=== PATIENT | male | born 1980 | race Caucasian/White ===

== ENCOUNTER 2018-09-10 01:10 | Observation (INO) ==
[2018-09-10] MEDS ORDERED: MORPHINE SULFATE 4 MG/1 ML IVP ONE ×2 (01:18→02:43)
[2018-09-10] MEDS ORDERED: Sodium Chloride 0.9% 1,000 ML PRIMARY IV ONE (01:18)
[2018-09-10] MEDS ORDERED: ONDANSETRON 4 MG/2 ML VIAL IVP ONE (01:18)
--- NOTE | 2018-09-10 01:22 | PDOC ---
Abdomen/Flank HPI - General Chief Complaint: Abdomen Pain Stated Complaint: Stomach Pain Date Seen by Provider: 09/10/18 Time Seen by Provider: 01:17 Source: POSITIVE: Patient Exam Limitations: POSITIVE: No limitations Nurse's Notes Reviewed & Considered: Yes - History of Present Illness Initial Comments: This is a well-developed, well-nourished, 38-year-old male, complaining of abdominal pain. She was in his normal state of health tonight just prior to eating supper at approximately 2100 hrs. Subsequent to his meal he developed epigastric abdominal pain and vomiting. His abdominal pain is diffuse but with significant tenderness in the right lower quadrant with rebound present. He denies any headache, no sore throat, no chest pain or shortness of breath, he does have nausea and vomiting but no diarrhea, no hematuria or dysuria, no rashes, no myalgias or arthralgias. Body Location Affected: REPORTS: Abdomen Timing: REPORTS: Abrupt Duration: 4-6 hours Severity: Severe Quality: REPORTS: Cramping, "Pain", Sharpness, Throbbing Abdominal Pain Onset Location: REPORTS: Epigastric Abdominal Pain Radiation: REPORTS: RLQ, Epigastric, Periumbilical Context: REPORTS: Bad Food (Patient ate a bratwurst for supper and then had abdominal pain with nausea and vomiting.) Modifying Factors: improves with: Nothing Associated Symptoms: REPORTS: Nausea, Vomiting Similar Symptoms Previously: No Recent Care Received: REPORTS: Denies Any Prior Injuries Related to Current Complaint?: No - Patient Home Medications Home Medications: Home Medications amitriptyline 25 mg tablet 25 mg PO QHS #30 tab 05/20/17 bupropion HCl XL 150 mg 24 hr tablet, extended release 150 mg PO QAM #30 tab 05/20/17 fenofibrate 54 mg tablet 50 mg PO ONCE #30 tab 05/20/17 - Patient Allergies Allergies/Adverse Reactions: Allergies Allergy/AdvReac Type Severity Reaction Status Date / Time No Known Drug Allergies Allergy NOT Verified 08/21/18 08:51 APPLICABLE Past Medical History - heen HEENT History: Recurrent Ear Infections, Other (please comment) Additional HEENT History: CHRONIC RIGHT EAR INFECTION Cardiovascular History: Hyperlipidemia Respiratory History: Asthma Additional Respiratory History: childhood asthma Gastrointestinal History: GERD, Gallbladder Disease Genitourinary History: Kidney Stones, Other (please comment) Additional Genitourinary History: URETEROLITHIASIS Endocrine History: Denies History Musculoskeletal History: Arthritis, Joint Pain Prosthesis or Implant: No Additional Musculoskeletal History: BILATERAL KNEES. NECK PAIN Neurological History: Migraines Additional Neurological History: once a week Blood Disorders: Denies History Psychiatric History: Depression, Bi Polar Disorder, Anxiety Disorders, Other (please comment) Additional Psychiatric History: INSOMNIA History of Sexually Transmitted Diseases: No Cancer History: Denies History History of MDRO: No History of Other Communicable Diseases: No Alcohol Use: None In the Past 12 Months, Have Used or Abuse Any Substance: None Previous Surgical History: Yes Type / Date of Surgery: bilateral INGUINAL HERNIORRHAPHY. right EAR SURGERY Anesthesia Reactions: No Malignant Hyperthermia: No Significant Family History: Asthma, Cancer, COPD, Diabetes, Heart disease, Hypertension, Lung disease ROS - Limitations ROS Limitations: No Limitations Constitution: REPORTS: Denies Symptoms Cardiovascular: REPORTS: Denies Cardiac Symptoms Respiratory: REPORTS: Denies Resp Symptoms Neurological: REPORTS: Denies Neuro Symptoms Gastrointestinal: REPORTS: Abdominal Pain, Nausea, Vomitting Endocrine: REPORTS: Denies Symptoms Musculoskeletal: REPORTS: Denies MS Symptoms Genitourinary: REPORTS: Denies Symptoms Eyes: REPORTS: Denies Symptoms ENT: REPORTS: Denies Symptoms Skin: REPORTS: Denies Skin Symptoms Lympathic: REPORTS: Denies Lympathic Symptoms Immunologic: POSITIVE: Denies Symptoms Psychiatric: POSITIVE: Denies Psych Symptoms Abdominal/Flank Pain PE - General Appearance General Appearance: POSITIVE: Alert, Cooperative, No Evidence of Trauma, Moderate Distress - HEENT HEENT: POSITIVE: Head Inspection Nml, Eyes Inspection Nml, Ears Inspection Nml, Nose Inspection Nml, Oral/Dental Inspect. Nml, Pharynx Inspect. Nml, PERRL, EOMI - Neck Neck: POSITIVE: Normal Inspection, No Apparent Injury - Respiratory Respiratory: POSITIVE: No Respiratory Distress, Breath Sounds Normal, Chest Non-Tender - Cardiovascular Cardiovascular: POSITIVE: Regular Rate and Rhythm, Heart Sounds Normal, Strong Pulses Peripheral Pulses: Radial (L): 4+ - Chest Chest: POSITIVE: Non Tender - Abdomen Abdomen: Soft: (All Quadrants), Normal Bowel Sounds: (All Quadrants), Denies Tenderness: (RUQ), (LUQ), (LLQ), No Splenomegaly: (All Quadrants), No Hepatomegaly: (All Quadrants), No Guarding: (RUQ), (LUQ), (LLQ), No Rebound: (RUQ), (LUQ), (LLQ), No Palpable Pulse: (All Quadrants), No Palpabale Mass: (All Quadrants), No Distention: (All Quadrants), No Rigidity: (All Quadrants), Tenderness Noted: (RLQ), Guarding: (RLQ), Rebound: (RLQ) - Back Back: POSITIVE: Normal Inspection - Skin Skin: POSITIVE: Intact, Normal For Race, Warm, Dry, No Rash - Extremities Extremity: Non-Tender: (All Extremities), Normal ROM: (All Extremities), Normal Inspection: (All Extremities), Pelvis Stable: (All Extremities) - Neurological Neurological: POSITIVE: Affect Apporpriate, Oriented X3, Motor Normal, Sensation Normal - Psychological Psychiatric: POSITIVE: Affect Appropriate, Mood Appropriate Abdomen Progress - Results Reviewed by me Xrays/CTs/US Reviewed by me: Yes Discussed with Radiologist: Yes Lab Results Reviewed by Me: Yes CBC and BMP: 09/10/18 01:30 09/10/18 01:30 - Patient's Progress Pain Medication Addressed: POSITIVE: Yes Re-examine Time: 03:48 Status: POSITIVE: Improved MDM / ED Course: Patient was evaluated, an IV started, blood drawn and sent to the lab for studies, CT examination of his abdomen was obtained. Findings: CBC shows a white count of 17.26. Hematocrit is 41.7. Hemoglobin and platelets are normal. CMP shows a BUN of 28, glucose 123. CRP is 3.0. Amylase is [address] lip[address] is [address]. [address] scan of his abdomen shows an acute appendicitis. Assessment: Acute appendicitis without perforation. Plan: I have contacted the on-call surgeon, Dr. Medel, whose advising antibiotics on-call and he is coming in to take the patient to the OR for indicated procedures. Arrival time is approximately one hour from now and he will call prior to his arrival for us to start the antibiotics. - Consult Consult (If Yes, Name of Consulting MD & Time Called): Yes (Dr. heredia [phone]) Consulting MD will see pt:: POSITIVE: In ED Counseled: POSITIVE: Patient, RE: Lab Results, RE: Radiology Results, RE: DX, RE: Need for F/U Patient Care Time - Estimated PCT Patient Care Time (In Minutes): 45 Vital Signs - VS Reviewed Vital Signs Reviewed: Yes Discharge Clinical Impression: Appendicitis Discharge Disposition: Transferred to OR Condition: Stable Patient Instructions Given at Discharge: Acute Abdominal Pain (ED) Follow Up With: SALVADOR LOPES [Primary Care Provider] -
[2018-09-10 01:33] LABS: BASOPHILS # (AUTO) 0.02 10*3/UL; BASOPHILS % (AUTO) 0.1 % (0-1); EOSINOPHILS # (AUTO) 0.14 10*3/UL; EOSINOPHILS % (AUTO) 0.8 % (0-8); Hematocrit [HCT] 41.7 % (42.0-52.0); Hemoglobin [HGB] 14.6 g/dL (14.0-18.0); LYMPHOCYTES # (AUTO) 3.42 10*3/uL; MEAN CORPUSCULAR HEMOGLOBIN 32.1 PG (27-31); MEAN CORPUSCULAR VOLUME 91.6 FL (80-90); MEAN PLATELET VOLUME 11.4 FL (7.4-12.2); MONOCYTES # (AUTO) 1.19 10*3/UL (0.3-0.8); MONOCYTES % (AUTO) 6.9 % (5-15); NEUTROPHILS # (AUTO) 12.45 10*3/UL; NEUTROPHILS % (AUTO) 72.2 % (50-80); RED BLOOD COUNT 4.55 10^6/uL (4.70-6.10)
[2018-09-10 01:35] LABS: PLATELET MORPHOLOGY COMMENT NORMAL MORPHOLOGY (NORM); RBC MORPHOLOGY COMMENT NORMAL MORPHOLOGY (NORM); WBC MORPHOLOGY COMMENT NORMAL MORPHOLOGY (NORM)
[2018-09-10 01:48] LABS: BLOOD UREA NITROGEN 28 mg/dL (7-22); BUN/CREATININE RATIO 25.45 (6-20); LIPASE 116 IU/L (23-300); SERUM ALBUMIN 4.4 g/dL (3.5-4.8)
--- NOTE | 2018-09-10 03:27 | DI ---
EXAM: CT Abdomen and Pelvis With Intravenous Contrast CLINICAL HISTORY: ITS.REASON RLQ pain Physician Notes: Tech Comments: TECHNIQUE: Axial computed tomography images of the abdomen and pelvis with intravenous contrast. COMPARISON: 07/19/17 FINDINGS: Lung bases: Unremarkable. No mass. No consolidation. ABDOMEN: Liver: Stable 2 cm liver lesion. Gallbladder and bile ducts: Cholecystectomy Pancreas: Unremarkable. No mass. No ductal dilation. Spleen: Unremarkable. No splenomegaly. Adrenals: Unremarkable. No mass. Kidneys and ureters: Unremarkable. No solid mass. No hydronephrosis. Stomach and bowel: No obstruction. No mucosal thickening. PELVIS: Appendix: Dilated distal appendix, 1 cm, with intraluminal fluid. No significant fat stranding. The appendix demonstrated a normal diameter on the prior scan. The calcified appendicolith seen on the prior is no longer seen. Bladder: Unremarkable. No mass. Reproductive: Unremarkable as visualized. ABDOMEN and PELVIS: Intraperitoneal space: Unremarkable. No free air. No significant fluid collection. Bones/joints: No acute fracture. No dislocation. Soft tissues: Unremarkable. Vasculature: No abdominal aortic aneurysm. Lymph nodes: Unremarkable. No enlarged lymph nodes. IMPRESSION: Acute appendicitis without evidence for perforation. <MYCVCSECTION> Critical [employer] 09/10/18 03:31 Verify Receipt Verified receipt with FRANCISCO JAVIER Roach for Dr. Dany Ames on 09/10 03:31 (-07:00)
[2018-09-10] MEDS ORDERED: Cefotaxime Inj 2 GM in Sodium Chloride 0.9% 100 ML IV ONE (03:40)
[2018-09-10] MEDS ORDERED: Lactated Ringers 1,000 ML PRIMARY IV ONE ×2 (05:35→08:22)
[2018-09-10] MEDS ORDERED: Sodium Chloride 0.9% 100 ML IV ONE (06:06)
[2018-09-10] MEDS ORDERED: CefOXitin Inj 2 GM in Sodium Chloride 0.9% 100 ML IV ONE (06:30)
[2018-09-10] MEDS ORDERED: MIDAZOLAM HCL 2 MG/2 ML VIAL ONE (06:36)
[2018-09-10] MEDS ORDERED: PROPOFOL 10 MG/1 ML (200 MG/20 ML) VIAL IV ONE (06:37)
[2018-09-10] MEDS ORDERED: fentaNYL Inj 250 MCG/5 ML VIAL ONE (06:37)
[2018-09-10] MEDS ORDERED: LIDOCAINE MPF 2% - 5 ML (20 MG/1 ML) ONE (06:37)
[2018-09-10] MEDS ORDERED: ROCURONIUM 10 MG/1 ML - 5 ML VIAL IVP ONE ×2 (06:39→08:11)
[2018-09-10] MEDS ORDERED: KETAMINE HCL 100 MG/2 ML SYRINGE IV ONE (06:39)
[2018-09-10] MEDS ORDERED: BUPivacaine Inj 0.5% PF (5mg/ml) 10ml vial ONE ×2 (07:15→07:56)
[2018-09-10] MEDS ORDERED: SUGAMMADEX SODIUM 200 MG/2 ML VIAL IV ONE (08:21)
[2018-09-10] MEDS ORDERED: KETOROLAC 30 MG/1 ML VIAL ONE (08:21)
[2018-09-10] MEDS ORDERED: ONDANSETRON 4 MG/2 ML VIAL ONE (08:21)
--- NOTE | 2018-09-10 09:12 | CRNA.PROGR ---
Anesthesia Recovery Phase I - Post Anesthesia Evaluation Patient's Condition on Arrival in Phase I: Stable Pain Level: 0
--- NOTE | 2018-09-10 09:12 | CRNA.PROGR ---
Anesthesia Time - Procedure/Recovery Time Start Date: 09/10/18 End Date: 09/10/18 Anesthesia : Time In: 07:44 Anesthesia : Time Out: 08:55 Anesthesia : Total Time: 71 - Total Anesthesia Time Total Anesthesia Time (minutes): 71 - Other Weight: 99.79 kg Height: 5 ft 11 in Body Mass Index (BMI): 30.7 Physical Status: P2 Anesthesia Type: General Anesthesia : ET
[2018-09-10] MEDS ORDERED: HYDROcodone-APAP 5 MG -325 MG TABLET PO PRN (09:38)
[2018-09-10] MEDS ORDERED: IBUPROFEN 600 MG TABLET PO PRN (09:38)
[2018-09-10] MEDS ORDERED: Lactated Ringers 1,000 ML PRIMARY IV SCH (09:38)
[2018-09-10] MEDS ORDERED: ONDANSETRON 4 MG/2 ML VIAL IVP PRN (09:38)
[2018-09-10 10:34] VITALS: RESP 18
[2018-09-10] MEDS ORDERED: MAG HYDROX/AL HYDROX/SIMETH 30 ML SUSP PO ONE (12:43)
[2018-09-10] MEDS: CefOXitin Inj 2 GM in Sodium Chloride 0.9% 100 ML IV SCH ×2 (13:15→17:12)
[2018-09-10 14:06] VITALS: BP 113/79; TEMP 98.2; O2SAT 93
== END 2018-09-10 17:50 | disposition home or self-care (01) ==
LOC: ER 01:10 → MED/SURG 06:50 → OR 06:50 → OPS 06:51
PROVIDERS: ADMIT Surgery; ATTEND Surgery